=== PATIENT | female | born 1940 | race Two or more races ===

== ENCOUNTER 2018-03-26 09:30 | Inpatient (IN) | payer OTHER ==
[~2018-03-26] VITALS: Ht 152.4 cm; Wt 70.3 kg
[2018-04-26] MEDS ORDERED: SYNTHROID88 MCG PO (14:55)
[2018-04-26] MEDS ORDERED: VERAPAMIL ER240 MG PO (14:55)
[2018-04-26] MEDS ORDERED: ATORVASTATIN CA40 MG PO (14:56)
[2018-04-26] MEDS ORDERED: CLONAZEPAM0.5 MG PO (14:56)
[2018-04-26] MEDS ORDERED: ALENDRONATE SOD70 MG PO (14:56)
[2018-04-26] MEDS ORDERED: PROTONIX40 M1 PO (14:57)
[2018-05-05] MEDS ORDERED: XARELTO10 MG PO (06:22)
[2018-05-05] MEDS ORDERED: OXYC1TAB9 PO (06:22)
[2018-05-05] MEDS ORDERED: INTEGRA PLUS C1 EACH PO (06:22)
== END 2018-05-05 15:23 | DRG 470 ==
LOC: EDSTATUS 04-16 09:30 → O/R 05-03 05:55 → SURH 05-03 05:55 → EDSTATUS 05-03 09:30 → CIR.AMB 05-03 09:30 → SURH 05-03 10:59
PROVIDERS: ADMIT Orthopaedic Surgery Sports Medicine
PROC: 0SRD0J9 Replacement of Left Knee Joint with Synthetic Substitute, Cemented, Open Approach (ICD-10-PCS; principal; 2018-05-03 07:00)
DX: M17.12 Unilateral primary osteoarthritis, left knee (principal); I10 Essential (primary) hypertension; E03.8 Other specified hypothyroidism